=== PATIENT | female | born 1945 | race Caucasian/White ===

== ENCOUNTER 2021-04-09 12:35 | Emergency (ER) | payer OTHER ==
[~2021-04-09] VITALS: Ht 152.4 cm; Wt 53.5 kg
[2021-04-09 13:30] LABS: HEMATOCRIT 39.5 % (31.2-41.9); MEAN CORPUSCULAR HEMOGLOBIN 31.3 uug (24.7-32.8); MEAN CORPUSCULAR VOLUME 95.9 fL (75.5-95.3); PLATELET COUNT (AUTO) 241 K/uL (179-408)
[2021-04-09] MEDS ORDERED: IV NORMAL SALINE 1000 ML BAG IV ONE (13:30)
--- NOTE | 2021-04-09 13:30 | NUR ---
pt ambulated to bathroom with assisstance.
[2021-04-09 13:33] LABS: CREATININE 0.9 mg/dL (0.6-1.3); POTASSIUM 4.2 mmol/L (3.5-5.1)
[2021-04-09 13:39] LABS: BILIRUBIN,DIRECT 0.1 mg/dL (0.0-0.2); BILIRUBIN,TOTAL 0.4 mg/dL (0.2-1.0); TOTAL PROTEIN, SERUM 7.5 g/dL (6.4-8.2)
[2021-04-09 14:05] LABS: *BILIRUBIN,URIN NEGATIVE (NEGATIVE); *BLOOD, URINE NEGATIVE (NEGATIVE); *CLARITY,URINE CLEAR (CLEAR); *COLOR,URINE YELLOW (YELLOW); *KETONES,URINE NEGATIVE (NEGATIVE); *UROBILINOGEN,URINE 0.2 E.U./dl (NORMAL); LEUKOCYTE ESTERASE ,URINE NEGATIVE (NEGATIVE); NITRITE, URINE NEGATIVE (NEGATIVE); UGLUCOSE NEGATIVE (NEGATIVE)
[2021-04-09] MEDS ORDERED: LISI40TA13 PO (14:37)
[2021-04-09] MEDS ORDERED: GLIP5TAB13 PO (14:37)
[2021-04-09] MEDS ORDERED: DENO60DI SQ (14:37)
[2021-04-09] MEDS ORDERED: SIMV-49 PO (14:37)
--- NOTE | 2021-04-09 14:53 | NUR ---
hospital lunch tray at bedside per pt request
[2021-04-09] MEDS ORDERED: IV NS 1000 ML 1,000 ML IV ONE (17:30)
--- NOTE | 2021-04-09 18:00 | NUR ---
PT AMBULATED TO BATHROOM AND AROUND ER WITH STEADY GAIT. PT SAYS SHE FEELS GOOD AND DENIES ANY PAIN OR DISTRESS. Addendum: 04/09/21 at 1850 by SHONNA PT AMBULATED TO BATHROOM AND SAT DOWN N COMMODE, AND HED HER HEAD DOWN AND FET DIZZY AGAIN. NOTIFIED. ASSISSTED PT BACK TO BED.
--- NOTE | 2021-04-09 18:08 | NUR ---
YY=[id number]
--- NOTE | 2021-04-09 18:49 | NUR ---
SOTO QUAN FROM [facility] ACCEPTED THE PT.
--- NOTE | 2021-04-09 18:51 | NUR ---
HOSPITAL DINNER TRAY AT BEDSIDE.
--- NOTE | 2021-04-09 20:59 | NUR ---
Patient is resting, watching a movie on the television. No acute distress noted.
--- NOTE | 2021-04-09 21:22 | NUR ---
Updated information on transfer: Patient will be transferred to: [facility] Room: 213 Nurse: Geri, number to give report [facility] ambulance will be picking up the patient roughly around 22:00.
--- NOTE | 2021-04-09 21:31 | NUR ---
Report given to RAZA Nevarez at [facility]. Updated that patient will be going to 215B.
--- NOTE | 2021-04-09 22:00 | NUR ---
[facility] ALS unit [id number] arrived at bedside. Report given.
--- NOTE | 2021-04-09 22:10 | NUR ---
Patient Transfers to outside Facility: [facility] Physician: MD Humphreys Location: Room 215B Report given to RAZA Nevarez.
== END 2021-04-09 22:10 | disposition short-term general hospital (02) ==
LOC: ER 12:35
DX: R55 Syncope and collapse (principal); E78.5 Hyperlipidemia, unspecified; Z79.899 Other long term (current) drug therapy; I10 Essential (primary) hypertension; Z79.84 Long term (current) use of oral hypoglycemic drugs; E11.65 Type 2 diabetes mellitus with hyperglycemia; I67.2 Cerebral atherosclerosis; Z20.822 Contact with and (suspected) exposure to COVID-19
CPT/HCPCS: 36415; 70030-TC; 70450; 85025; 85730; 93005; A4663; J7030